=== PATIENT | female | born 1945 | race Caucasian/White ===

== ENCOUNTER 2020-10-23 07:11 | Emergency (ER) | payer MEDICARE, OTHER ==
[2020-10-23 09:01] LABS: BASOPHIL 0.2 % (0-2); EOSINOPHIL 0.9 % (0-7); HCT 42.1 % (37.0-47.0); HGB 13.7 g/dl (12.5-16.0); LYMPHOCYTE 16.8 % (15-48); MCH 29.2 pg (25.0-31.0); MCHC 32.5 g/dL (32.0-36.0); MCV 89.8 fL (78.0-100.0); MONOCYTE 6.5 % (0-12); MPV 10.2 fL (6.0-9.5); NEUTROPHIL 75.2 % (41-80); NRBC 0; PLT 211 K/uL (150-400); RBC 4.69 M/uL (4.20-5.40); RDW 13.8 % (11.5-14.0); WBC 10.1 K/uL (4.0-10.5)
[2020-10-23 09:14] LABS: INR 1.01 (0.9-1.2); PROTHROMBIN TIME 12.6 SECONDS (11.4-13.6)
[2020-10-23 09:22] LABS: BUN/CREAT RATIO (CALC) 16.5 RATIO; CREATININE 0.91 mg/dL (0.51-0.95)
== END 2020-10-23 12:03 | disposition other institution (70) ==
LOC: FER 07:11
PROVIDERS: Emergency Medicine
DX: S06.5X0A Traumatic subdural hemorrhage without loss of consciousness, initial encounter (principal); S00.01XA Abrasion of scalp, initial encounter; R42 Dizziness and giddiness; E11.9 Type 2 diabetes mellitus without complications; Z86.73 Personal history of transient ischemic attack (TIA), and cerebral infarction without residual deficits; Z87.19 Personal history of other diseases of the digestive system; W19.XXXA Unspecified fall, initial encounter; Y92.009 Unspecified place in unspecified non-institutional (private) residence as the place of occurrence of the external cause; Z23 Encounter for immunization
CPT/HCPCS: 36415; 70450; 80048; 84484; 85025; 85610; 90471; 90714; 93005

== ENCOUNTER 2020-11-01 09:05 | Emergency (ER) | payer MEDICARE, OTHER ==
[2020-11-01 10:10] LABS: BASOPHIL 0.4 % (0-2); EOSINOPHIL 2.1 % (0-7); HCT 36.7 % (37.0-47.0); HGB 11.9 g/dl (12.5-16.0); MCH 29.8 pg (25.0-31.0); MCHC 32.4 g/dL (32.0-36.0); MONOCYTE 7.4 % (0-12); MPV 10.2 fL (6.0-9.5); NEUTROPHIL 67.7 % (41-80); NRBC 0; PLT 198 K/uL (150-400); RBC 3.99 M/uL (4.20-5.40); RDW 13.6 % (11.5-14.0); WBC 8.1 K/uL (4.0-10.5)
[2020-11-01 10:30] LABS: BILIRUBIN NEGATIVE (NEGATIVE); BLOOD NEGATIVE Ery/uL (NEGATIVE); CLARITY CLEAR (CLEAR); COLOR YELLOW (YELLOW); GLUCOSE (U) NORMAL (NORMAL); LEUKOCYTES NEGATIVE Leu/uL (NEGATIVE); NITRITE NEGATIVE (NEGATIVE); PROTEIN NEGATIVE (NEGATIVE); SPECIFIC GRAVITY 1.025 (1.001-1.030); UROBILINOGEN 0.2 mg/dL (0.2-1.0)
[2020-11-01 10:39] LABS: ALBUMIN 3.1 g/dL (3.4-5.0); BILIRUBIN - TOTAL 0.3 mg/dL (0.2-1.0); BUN/CREAT RATIO (CALC) 15.6 RATIO; CREATININE 0.96 mg/dL (0.51-0.95); GLOBULIN (CALCULATION) 3.3 g/dL; POTASSIUM 4.3 mmol/L (3.5-5.1); TOTAL PROTEIN 6.4 g/dL (6.4-8.2)
== END 2020-11-01 11:56 | disposition home or self-care (01) ==
LOC: FER 09:05
PROVIDERS: Emergency Medicine
DX: R42 Dizziness and giddiness (principal); I10 Essential (primary) hypertension; Z87.820 Personal history of traumatic brain injury
CPT/HCPCS: 36415; 70450; 80053; 81003; 84443; 85025; 93005

== ENCOUNTER 2020-11-05 16:39 | Emergency (ER) | payer MEDICARE, OTHER | END 2020-11-05 18:08 | disposition home or self-care (01) | LOC: FER 16:39 | DX: S00.93XA Contusion of unspecified part of head, initial encounter (principal); I10 Essential (primary) hypertension; E11.9 Type 2 diabetes mellitus without complications; F03.90 Unspecified dementia, unspecified severity, without behavioral disturbance, psychotic disturbance, mood disturbance, and anxiety; Z86.73 Personal history of transient ischemic attack (TIA), and cerebral infarction without residual deficits; W19.XXXA Unspecified fall, initial encounter; Y92.129 Unspecified place in nursing home as the place of occurrence of the external cause | CPT/HCPCS: 70450; 72125 ==

== ENCOUNTER 2020-11-12 16:51 | Emergency (ER) | payer MEDICARE, OTHER | END 2020-11-12 19:05 | disposition home or self-care (01) | LOC: FER 16:51 | DX: S52.122A Displaced fracture of head of left radius, initial encounter for closed fracture (principal); S09.90XA Unspecified injury of head, initial encounter; I10 Essential (primary) hypertension; W19.XXXA Unspecified fall, initial encounter; Z91.81 History of falling; Y92.129 Unspecified place in nursing home as the place of occurrence of the external cause; Z86.73 Personal history of transient ischemic attack (TIA), and cerebral infarction without residual deficits | CPT/HCPCS: 70450; 72125; 73080 ==

== ENCOUNTER 2020-11-28 13:51 | Emergency (ER) | payer MEDICARE, OTHER | END 2020-11-28 17:40 | disposition home or self-care (01) | LOC: FER 13:51 | DX: S09.90XA Unspecified injury of head, initial encounter (principal); S40.011A Contusion of right shoulder, initial encounter; S80.01XA Contusion of right knee, initial encounter; W19.XXXA Unspecified fall, initial encounter; Y92.129 Unspecified place in nursing home as the place of occurrence of the external cause | CPT/HCPCS: 70450; 73030; 73560; J3490 ==

== ENCOUNTER 2021-01-15 10:51 | Emergency (ER) | payer MEDICARE, OTHER ==
[2021-01-15 12:27] LABS: BASOPHIL 0.2 % (0-2); EOSINOPHIL 1.6 % (0-7); HCT 38.5 % (37.0-47.0); HGB 13.2 g/dl (12.5-16.0); LYMPHOCYTE 33.4 % (15-48); MCH 29.5 pg (25.0-31.0); MCHC 34.3 g/dL (32.0-36.0); MCV 85.9 fL (78.0-100.0); MONOCYTE 8.3 % (0-12); MPV 10.2 fL (6.0-9.5); NEUTROPHIL 56.3 % (41-80); NRBC 0; PLT 228 K/uL (150-400); RBC 4.48 M/uL (4.20-5.40); RDW 13.2 % (11.5-14.0); WBC 8.2 K/uL (4.0-10.5)
[2021-01-15 12:32] LABS: BILIRUBIN NEGATIVE (NEGATIVE); BLOOD NEGATIVE Ery/uL (NEGATIVE); CLARITY CLEAR (CLEAR); COLOR YELLOW (YELLOW); GLUCOSE (U) NORMAL (NORMAL); LEUKOCYTES NEGATIVE Leu/uL (NEGATIVE); NITRITE NEGATIVE (NEGATIVE); PROTEIN TRACE (LOW) mg/dL (NEGATIVE); SPECIFIC GRAVITY 1.025 (1.001-1.030); UROBILINOGEN >=8.0 mg/dL (0.2-1.0); pH 6.5 (5.0-9.0)
[2021-01-15 12:50] LABS: BUN/CREAT RATIO (CALC) 27.9 RATIO; CREATININE 0.86 mg/dL (0.51-0.95); POTASSIUM 4.4 mmol/L (3.5-5.1)
== END 2021-01-15 13:40 | disposition home or self-care (01) ==
LOC: FER 10:51
PROVIDERS: Emergency Medicine
DX: S09.90XA Unspecified injury of head, initial encounter (principal); S00.12XA Contusion of left eyelid and periocular area, initial encounter; S50.311A Abrasion of right elbow, initial encounter; I95.1 Orthostatic hypotension; E11.9 Type 2 diabetes mellitus without complications; I10 Essential (primary) hypertension; W19.XXXA Unspecified fall, initial encounter; W22.8XXA Striking against or struck by other objects, initial encounter
CPT/HCPCS: 36415; 70450; 80048; 81001; 85025; 93005

== ENCOUNTER 2021-08-18 19:51 | Inpatient (IN) | payer MEDICARE, OTHER ==
[~2021-08-18] VITALS: Ht 160 cm; Wt 69.6 kg
[~2021-08-18 19:51] MED LIST: MACROBID100 MG PO
[2021-08-18 21:15] LABS: BASOPHIL 0.3 % (0-2); HCT 36.6 % (37.0-47.0); HGB 12.1 g/dl (12.5-16.0); LYMPHOCYTE 26.8 % (15-48); MCH 28.3 pg (25.0-31.0); MCHC 33.1 g/dL (32.0-36.0); MCV 85.5 fL (78.0-100.0); MONOCYTE 9.7 % (0-12); NEUTROPHIL 61.9 % (41-80); NRBC 0; PLT 248 K/uL (150-400); RBC 4.28 M/uL (4.20-5.40); RDW 14.3 % (11.5-14.0); WBC 10.4 K/uL (4.0-10.5)
[2021-08-18 21:27] LABS: BUN/CREAT RATIO (CALC) 21.4 RATIO; CREATININE 0.84 mg/dL (0.51-0.95)
[2021-08-18 21:38] LABS: LACTIC ACID 0.9 mmol/L (0.4-1.9); POTASSIUM 5.7 mmol/L (3.5-5.1)
[2021-08-19] MEDS ORDERED: NORVASC5 MG PO (01:46)
[2021-08-19] MEDS ORDERED: MELATONIN5 M2 PO (01:47)
[2021-08-19] MEDS ORDERED: HALOPERIDOL PO (01:47)
[2021-08-19] MEDS ORDERED: COZAAR100 MG PO (01:47)
[2021-08-19] MEDS ORDERED: TOPROL XL 50 MG50 MG PO (01:48)
[2021-08-19] MEDS ORDERED: METFORMIN HCL500 MG PO (01:48)
[2021-08-19] MEDS ORDERED: VITAMIN B-121000 MC1 PO (01:49)
[2021-08-19] MEDS ORDERED: CRESTOR10 M1 PO (01:49)
[2021-08-19] MEDS ORDERED: VENLAFAXINE HCL75 MG PO (01:49)
[2021-08-19] MEDS ORDERED: ACETAMINOPHEN325 MG PO (01:50)
[2021-08-19] MEDS ORDERED: BASAGLAR K100 UNIT/1 SC ×2 (01:51)
[2021-08-19] MEDS ORDERED: VITAMIN D21250 MCG PO (01:53)
--- NOTE | 2021-08-19 17:13 | NUR ---
08/19/21 Ms. Ocampo lives at [facility]. Her condition has been declining. [place] [facility] will require patient to be able to take oral medications and sit up in her wc in order to return. They would also accept her back if she is Hospice appropriate. Discharge options were discussed with Lio Ocampo, son, POA, . A plan was devised to discuss patient's condition with [place] and Hospice. NH choices were also discussed. Patient's condition will be monitored for changes. Clinicals were sent to Hospice for review.
[2021-08-20 06:37] LABS: BASOPHIL 0.3 % (0-2); EOSINOPHIL 2.1 % (0-7); HCT 37.3 % (37.0-47.0); HGB 12.4 g/dl (12.5-16.0); LYMPHOCYTE 25.7 % (15-48); MCH 28.4 pg (25.0-31.0); MCHC 33.2 g/dL (32.0-36.0); MCV 85.4 fL (78.0-100.0); MONOCYTE 7.9 % (0-12); MPV 9.8 fL (6.0-9.5); NEUTROPHIL 63.6 % (41-80); NRBC 0; PLT 223 K/uL (150-400); RBC 4.37 M/uL (4.20-5.40); RDW 13.9 % (11.5-14.0); WBC 7.6 K/uL (4.0-10.5)
[2021-08-20 07:11] LABS: CREATININE 0.8 mg/dL (0.51-0.95)
[2021-08-20 07:20] LABS: POTASSIUM 4.2 mmol/L (3.5-5.1)
--- NOTE | 2021-08-20 15:30 | NUR ---
08/20 Ms. Ocampo is more alert and talking. She is taking crushed medications by mouth per nursing. Lio Ocampo, son, wishes for Ms. Ocampo to return to [facility]. He is no longer interested in Hospice.
[2021-08-21] MEDS ORDERED: CEFDINIR300 MG PO ×2 (11:26→13:52)
[2021-08-21] MEDS ORDERED: MIRALAX17 GM PO (11:33)
== END 2021-08-21 13:05 | disposition home or self-care (01) | DRG 689 ==
LOC: FER 19:51 → FMS 08-19 00:23 → FER 08-19 01:14 → FMS 08-21 13:05
PROVIDERS: Emergency Medicine Emergency Medical Services; Hospitalist; ADMIT Allergy & Immunology Allergy
DX: N39.0 Urinary tract infection, site not specified (principal); G93.41 Metabolic encephalopathy; G31.83 Neurocognitive disorder with Lewy bodies; F02.80 Dementia in other diseases classified elsewhere, unspecified severity, without behavioral disturbance, psychotic disturbance, mood disturbance, and anxiety; Z20.822 Contact with and (suspected) exposure to COVID-19; E11.9 Type 2 diabetes mellitus without complications; I10 Essential (primary) hypertension; M19.90 Unspecified osteoarthritis, unspecified site; R13.10 Dysphagia, unspecified; E53.8 Deficiency of other specified B group vitamins; E78.5 Hyperlipidemia, unspecified; F41.9 Anxiety disorder, unspecified; Z79.84 Long term (current) use of oral hypoglycemic drugs; Z79.4 Long term (current) use of insulin; Z79.899 Other long term (current) drug therapy; Z98.890 Other specified postprocedural states; Z87.440 Personal history of urinary (tract) infections
CPT/HCPCS: 36415; 36600; 70450; 71045; 80048; 80053; 81001; 82803; 83605; 84145; 84484; 85025; 87040; 87076; 87088; 93005; 94010; J0692; J0696; J1650; J2310; J7030; J7040; U0002

== ENCOUNTER 2021-11-07 16:00 | Inpatient (IN) | payer MEDICARE, OTHER ==
[~2021-11-07] VITALS: Ht 167.6 cm; Wt 62.0 kg
[~2021-11-07 16:00] MED LIST changes: +ACETAMINOPHEN325 MG PO; +BASAGLAR K100 UNIT/1 SC; +CEFDINIR300 MG PO; +COZAAR100 MG PO; +CRESTOR10 M1 PO; +HALOPERIDOL PO; +MELATONIN5 M2 PO; +METFORMIN HCL500 MG PO; +MIRALAX17 GM PO; +NORVASC5 MG PO; +TOPROL XL 50 MG50 MG PO; +VENLAFAXINE HCL75 MG PO; +VITAMIN B-121000 MC1 PO; +VITAMIN D21250 MCG PO
[2021-11-07 17:13] LABS: BASOPHIL 0.3 % (0-2); EOSINOPHIL 0 % (0-7); LYMPHOCYTE 18.1 % (15-48); MCHC 30.8 g/dL (32.0-36.0); MCV 94.2 fL (78.0-100.0); MONOCYTE 6.7 % (0-12); MPV 11.4 fL (6.0-9.5); NEUTROPHIL 74.1 % (41-80); NRBC 0; PLT 308 K/uL (150-400); RBC 5.52 M/uL (4.20-5.40); RDW 14.4 % (11.5-14.0); WBC 18.4 K/uL (4.0-10.5)
[2021-11-07 17:27] LABS: ALBUMIN 3.4 g/dL (3.4-5.0); BILIRUBIN - TOTAL 0.6 mg/dL (0.2-1.0); BUN/CREAT RATIO (CALC) 38.4 RATIO; CREATININE 1.46 mg/dL (0.51-0.95); POTASSIUM 4.5 mmol/L (3.5-5.1); TOTAL PROTEIN 7.4 g/dL (6.4-8.2)
[2021-11-07 17:34] LABS: LACTIC ACID 1.8 mmol/L (0.4-1.9)
[2021-11-07 17:44] LABS: BILIRUBIN 1+ mg/dL (NEGATIVE); BLOOD NEGATIVE Ery/uL (NEGATIVE); CLARITY CLEAR (CLEAR); COLOR YELLOW (YELLOW); GLUCOSE (U) NORMAL (NORMAL); LEUKOCYTES NEGATIVE Leu/uL (NEGATIVE); NITRITE NEGATIVE (NEGATIVE); PROTEIN TRACE (LOW) mg/dL (NEGATIVE); SPECIFIC GRAVITY >=1.030 (1.001-1.030); pH 5.5 (5.0-9.0)
[2021-11-07 22:06] LABS: INFLUENZA A NAA NEGATIVE (NEGATIVE)
[2021-11-07 22:14] LABS: CORONAVIRUS 2019 SARS-COV-2 POSITIVE (NEGATIVE)
[2021-11-08 04:31] LABS: BASOPHIL 0.2 % (0-2); EOSINOPHIL 0 % (0-7); HCT 45.4 % (37.0-47.0); HGB 14.1 g/dl (12.5-16.0); LYMPHOCYTE 16.7 % (15-48); MCH 29.2 pg (25.0-31.0); MCHC 31.1 g/dL (32.0-36.0); MONOCYTE 6.5 % (0-12); MPV 11.2 fL (6.0-9.5); NEUTROPHIL 75.9 % (41-80); NRBC 0; PLT 235 K/uL (150-400); RBC 4.83 M/uL (4.20-5.40); RDW 14.5 % (11.5-14.0); WBC 14.4 K/uL (4.0-10.5)
[2021-11-08 04:57] LABS: BILIRUBIN - DIRECT 0.2 mg/dL (0.00-0.20); BILIRUBIN - TOTAL 0.4 mg/dL (0.2-1.0); BUN/CREAT RATIO (CALC) 42.5 RATIO; C-REACTIVE PROTEIN 0.7 mg/dL (<=0.90); CREATININE 1.27 mg/dL (0.51-0.95); GLOBULIN (CALCULATION) 3.5 g/dL; MAGNESIUM 2.4 mg/dL (1.8-2.4); TOTAL PROTEIN 6.5 g/dL (6.4-8.2)
[2021-11-09 04:53] LABS: BASOPHIL 0.2 % (0-2); EOSINOPHIL 0.1 % (0-7); HCT 44.3 % (37.0-47.0); HGB 12.9 g/dl (12.5-16.0); MCH 29.4 pg (25.0-31.0); MCHC 29.1 g/dL (32.0-36.0); MONOCYTE 4.9 % (0-12); MPV 11.5 fL (6.0-9.5); NEUTROPHIL 83.1 % (41-80); NRBC 0; PLT 161 K/uL (150-400); RBC 4.39 M/uL (4.20-5.40); RDW 14.3 % (11.5-14.0); RETICULOCYTE COUNT 1.3 % (1.0-2.0); WBC 18.3 K/uL (4.0-10.5)
[2021-11-09 04:56] LABS: MCV 100.9 fL (78.0-100.0)
[2021-11-09 05:08] LABS: IRON % SATURATION 10.7 %SAT (20-50)
[2021-11-09 06:47] LABS: ALBUMIN 2.5 g/dL (3.4-5.0); BILIRUBIN - TOTAL 0.5 mg/dL (0.2-1.0); BUN/CREAT RATIO (CALC) 36.8 RATIO; C-REACTIVE PROTEIN 4.2 mg/dL (<=0.90); CREATININE 0.95 mg/dL (0.51-0.95); FOLIC ACID (SERUM) 4.5 ng/mL (8.6-58.9); GLOBULIN (CALCULATION) 3.3 g/dL; MAGNESIUM 2.1 mg/dL (1.8-2.4); PHOSPHORUS 1.4 mg/dL (2.6-4.7); POTASSIUM 3.8 mmol/L (3.5-5.1); TOTAL PROTEIN 5.8 g/dL (6.4-8.2)
[2021-11-10 09:56] LABS: BASOPHIL 0.2 % (0-2); EOSINOPHIL 0 % (0-7); HCT 44.1 % (37.0-47.0); HGB 13.8 g/dl (12.5-16.0); LYMPHOCYTE 6.2 % (15-48); MCH 28.8 pg (25.0-31.0); MCHC 31.3 g/dL (32.0-36.0); MONOCYTE 3.9 % (0-12); MPV 12.2 fL (6.0-9.5); NEUTROPHIL 88.4 % (41-80); NRBC 0; PLT 212 K/uL (150-400); RBC 4.79 M/uL (4.20-5.40); RDW 14.6 % (11.5-14.0); WBC 23.8 K/uL (4.0-10.5)
[2021-11-10 10:05] LABS: ALBUMIN 2.6 g/dL (3.4-5.0); BILIRUBIN - TOTAL 0.6 mg/dL (0.2-1.0); BUN/CREAT RATIO (CALC) 38.4 RATIO; CREATININE 1.12 mg/dL (0.51-0.95); MAGNESIUM 2.2 mg/dL (1.8-2.4); POTASSIUM 4.1 mmol/L (3.5-5.1); TOTAL PROTEIN 6.6 g/dL (6.4-8.2)
[2021-11-10 10:07] LABS: MCV 92.1 fL (78.0-100.0)
--- NOTE | 2021-11-10 14:43 | NUR ---
PER DR. ARECHIGA, HE HAS SPOKEN WITH SON. THE SON WANTS HIS MOTHER TO RETURN TO [facility] UNDER HOSPICE CARE. TC FROM IDANNA FROM [facility]. SHE ADVISED THEY WILL ACCEPT THE PT BACK UNDER HOSPICE. TC TO [facility]. SHE WILL CONTACT THE SON TO ARRANGE FOR PAPERWORK. ADVISED DR. ARECHIGA THAT [facility] CAN ACCEPT PT BACK TO THE FACILITY ON 11/11/21.
--- NOTE | 2021-11-10 15:52 | NUR ---
PT WILL RETURN TO [facility] WITH HOSPICE CARE. PLEASE CALL HOSPICE AND LET THEM KNOW WHEN PATIENT IS READY TO LEAVE THE HOSPITAL [phone] THE REPORT NUMBER FOR [facility] IS FAX NUMBER IS [phone]
[2021-11-11 06:56] LABS: BUN/CREAT RATIO (CALC) 41.9 RATIO; CREATININE 0.93 mg/dL (0.51-0.95); POTASSIUM 3.7 mmol/L (3.5-5.1)
[2021-11-11] MEDS ORDERED: TYLENOL650 MG PR (13:14)
[2021-11-11] MEDS ORDERED: MORPHINE 110 MG/0.5 PO/SL (13:17)
--- NOTE | 2021-11-11 18:40 | NUR ---
CALLED TO BEDSIDE AT 1735 BY FAMILY. PT PRONOUNCED BY DR. GANNON. IN ROUTE. CHECKLIST COMPLETED. KATHY NOTIFIED AND PT RULED OUT FOR DONATION. [place] CONTACTED REQUESTED BY FAMILY.
== END 2021-11-11 19:10 | disposition expired | DRG 177 ==
LOC: FER 16:00 → FMS 21:00 → FER 21:40 → FMS 22:16
PROVIDERS: Emergency Medicine; Nurse Practitioner; ADMIT Internal Medicine
PROC: 8E0ZXY6 Isolation (ICD-10-PCS; principal; 2021-11-07)
DX: U07.1 COVID-19 (principal); J12.82 Pneumonia due to coronavirus disease 2019; G93.41 Metabolic encephalopathy; J96.01 Acute respiratory failure with hypoxia; N17.9 Acute kidney failure, unspecified; E87.0 Hyperosmolality and hypernatremia; Z66 Do not resuscitate; Z51.5 Encounter for palliative care; E86.0 Dehydration; G31.83 Neurocognitive disorder with Lewy bodies; F02.80 Dementia in other diseases classified elsewhere, unspecified severity, without behavioral disturbance, psychotic disturbance, mood disturbance, and anxiety; I10 Essential (primary) hypertension; E83.39 Other disorders of phosphorus metabolism; E78.5 Hyperlipidemia, unspecified; E11.9 Type 2 diabetes mellitus without complications; F41.9 Anxiety disorder, unspecified; M19.90 Unspecified osteoarthritis, unspecified site; Z87.440 Personal history of urinary (tract) infections; Z79.84 Long term (current) use of oral hypoglycemic drugs; Z79.899 Other long term (current) drug therapy
CPT/HCPCS: 36415; 36600; 70450; 70551; 71045; 80048; 80053; 80076; 81003; 82553; 82607; 82746; 82803; 83540; 83550; 83605; 83615; 83735; 83880; 84100; 84145; 84295; 84484; 85025; 85379; 86140; 87040; 87088; 93005; C9399; G0378; J1650; J1815; J2916; J3480; J7030; J7040; J7050; U0002